=== PATIENT | female | born 1980 | race American Indian/Alaskan Native ===

== ENCOUNTER 2016-11-20 22:27 | Emergency (ER) | payer SELFPAY ==
--- NOTE | 2016-11-20 23:00 | Emergency Department Report ---
Chief Complaint: Psych Stated Complaint: ARTIS TAY Time Seen by Provider: 11/20/16 22:56 - HPI History of Present Illness: Chin here complaining of feeling tired and just wants to sleep. She denies suicidal or homicidal ideation. Blood pressure is 158/115. She says she feels stressed out. Patient does have a history of high blood pressure - ROS Review of Systems: All systems are negative unless stated in HPI above. - Exam Vital Signs: Vital Signs 11/20/16 22:41 Temperature 98.3 F Pulse Rate 105 H Respiratory 20 Rate Blood Pressure 158/115 O2 Sat by Pulse 97 Oximetry Physical Exam: General: This is a 35-year-old female well-nourished well-developed in no acute distress. Psych: Normal mood and behavior. Denies hallucination, suicidal ideation or homicide ideation. Cardiovascular: S1, S2. Tachycardic at 105. Regular rhythm MSE screening note: Focused history and physical exam performed. Due to findings the following was ordered:see mdm ED Medical Decision Making - Medical Decision Making Medical decision making: Patient seen by provider in triage area. Appropriate protocol activated and patient to main ED to be seen by physician. ED Disposition for MSE Condition: Stable
[2016-11-21 01:51] LABS: Basophils % (Auto) 0.5 % (0.0-1.8); Eosinophils % (Auto) 0.4 % (0.0-4.3); Hematocrit 37.6 % (30.3-42.9); Mean Corpuscular HGB Conc 32 % (30-34); Mean Corpuscular Hemoglobin 26 pg (28-32); Mean Corpuscular Volume 81 fl (79-97); Platelet Count 279 K/mm3 (140-440); Red Blood Count 4.63 M/mm3 (3.65-5.03); Red Cell Distribution Width 14.8 % (13.2-15.2); White Blood Count 8.1 K/mm3 (4.5-11.0)
[2016-11-21 01:54] VITALS: BP 128/85
[2016-11-21 02:05] LABS: Urine Drugs of Abuse Note Disclamer
[2016-11-21 02:16] LABS: Bacteria,Urine 1+ /HPF (Negative); Bilirubin,Urine NEG (Negative); Blood,Urine NEG (Negative); Ketones,Urine 20 mg/dL (Negative); Leukocyte Esterase,Urine NEG (Negative); Mucus,Urine 3+ /HPF; Nitrite,Urine NEG (Negative); Urobilinogen,Urine < 2.0 mg/dL (<2.0)
[2016-11-21 02:22] LABS: Blood Urea Nitrogen 7 mg/dL (7-17); Calcium 8.4 mg/dL (8.4-10.2); Carbon Dioxide 22 mmol/L (22-30); Glucose 100 mg/dL (65-100)
[2016-11-21 02:23] LABS: Chloride 102.1 mmol/L (98-107); Potassium 3.8 mmol/L (3.6-5.0); Sodium 139 mmol/L (137-145)
[2016-11-21 02:24] LABS: Anion Gap 19 mmol/L
--- NOTE | 2016-11-21 03:10 | Emergency Department Report ---
ED Psych HPI - General Chief Complaint: Psych Stated Complaint: ARTIS TAY Time Seen by Provider: 11/20/16 22:56 Source: patient Mode of arrival: Ambulatory Limitations: No Limitations - History of Present Illness Initial Comments: 35-year-old female with a past medical history of hypertension not currently on medications presents to the hospital complains of feeling tired and needing a place to sleep. Patient states she had to leave apartment in which she was living since her name was not on the lease therefore, patient is homeless as of yesterday. She states she hasn't slept in 24 hours due to insomnia and that she needs something to help her sleep and a comfortable place to sleep. He denies any physical complaints. She denies suicidal ideation, homicidal ideation, hallucinations, or psychiatric illness. She only states that she has "poor coping skills". She has taken Benadryl in the past to help her sleep and has not bought any [id number] prior to arrival. - Related Data Previous Rx's Medication Instructions Recorded Last Taken Type Diphenhydramine HCl [Sleep Aid] 50 mg PO QHS PRN #20 capsule 11/21/16 Unknown Rx Allergies Allergy/AdvReac Type Severity Reaction Status Date / Time No Known Allergies Allergy Verified 11/21/16 02:03 ED Review of Systems ROS: Stated complaint: ARTIS TAY Other details as noted in HPI Comment: All other systems reviewed and negative Other: Constitutional: No fevers chills Eyes: No eye pain visual changes ENT: No ear pain or throat pain Neck: Denies pain Respiratory: Denies cough wheezing shortness of breath Cardiovascular: Denies chest pain, palpitations, syncope GI: Denies abdominal pain, nausea, vomiting, diarrhea : Denies dysuria Musculoskeletal: Denies back pain Skin: Denies rash, lesions, erythema Neurologic: Denies headache, numbness, weakness Psychiatric: Denies suicidal ideation, hallucinations ED Past Medical Hx - Past Medical History Previous Medical History?: Yes Hx Hypertension: Yes - Surgical History Past Surgical History?: Yes Additional Surgical History: BREAST REDUCTION, X 2 - Social History Smoking Status: Current Every Day Smoker Substance Use Type: None - Medications Home Medications: Home Medications Medication Instructions Recorded Confirmed Last Taken Type Diphenhydramine HCl [Sleep Aid] 50 mg PO QHS PRN #20 capsule 11/21/16 Unknown Rx ED Physical Exam - General Limitations: No Limitations - Other Other exam information: General: No limitations, patient is alert in no acute distress Head exam: Atraumatic, normocephalic Eyes exam: Normal appearance, pupils equal reactive to light, extraocular movements intact ENT: Moist mucous membrane, normal oropharynx Neck exam: Normal inspection, full range of motion Respiratory exam: Clear to auscultation bilateral Cardiovascular: Normal rate and rhythm, normal heart sounds Abdomen: Soft, nondistended, and nontender, with normal bowel sounds, no rebound, or guarding Extremity: Full range of motion normal inspection no deformity Back: Normal Inspection, full range of motion, no tenderness Neurologic: Alert, oriented x3, cranial nerves intact, no motor or sensory deficit Psychiatric: normal affect, normal mood Skin: Warm, dry, intactxam ED Course Vital Signs 11/20/16 11/21/16 22:41 01:54 Temperature 98.3 F Pulse Rate 105 H 94 H Respiratory 20 Rate Blood Pressure 158/115 Blood Pressure 128/85 [Left] O2 Sat by Pulse 97 Oximetry - Reevaluation(s) Reevaluation #1: 11/21/16 03:13 Patient remained stable and cooperativity ED. Repeat blood pressure shows improvement spontaneously without treatment ED Medical Decision Making - Lab Data Result diagrams: 11/21/16 01:37 11/21/16 01:37 Lab Results 11/21/16 11/21/16 11/21/16 Range/Units 01:37 01:37 01:37 WBC 8.1 (4.5-11.0) K/mm3 RBC 4.63 (3.65-5.03) M/mm3 Hgb 12.0 (10.1-14.3) gm/dl Hct 37.6 (30.3-42.9) % MCV 81 (79-97) fl MCH 26 L (28-32) pg MCHC 32 (30-34) % RDW 14.8 (13.2-15.2) % Plt Count 279 (140-440) K/mm3 Lymph % (Auto) 32.1 (13.4-35.0) % [place] % (Auto) 11.2 H (0.0-7.3) % Eos % (Auto) 0.4 (0.0-4.3) % Baso % (Auto) 0.5 (0.0-1.8) % Lymph # 2.6 (1.2-5.4) K/mm3 [place] # 0.9 H (0.0-0.8) K/mm3 Eos # 0.0 (0.0-0.4) K/mm3 Baso # 0.0 (0.0-0.1) K/mm3 Seg Neutrophils % 55.8 (40.0-70.0) % Seg Neutrophils # 4.5 (1.8-7.7) K/mm3 Sodium 139 (137-145) mmol/L Potassium 3.8 (3.6-5.0) mmol/L Chloride 102.1 (98-107) mmol/L Carbon Dioxide 22 (22-30) mmol/L Anion Gap 19 mmol/L BUN 7 (7-17) mg/dL Creatinine 0.7 (0.7-1.2) mg/dL Estimated GFR > 60 ml/min BUN/Creatinine Ratio 10.00 % Glucose 100 (65-100) mg/dL Calcium 8.4 (8.4-10.2) mg/dL Urine Color (Yellow) Urine Turbidity (Clear) Urine pH (5.0-7.0) Ur Specific [place] (1.003-1.030) Urine Protein (Negative) mg/dL Urine Glucose (UA) (Negative) mg/dL Urine Ketones (Negative) mg/dL Urine Blood (Negative) Urine Nitrite (Negative) Urine Bilirubin (Negative) Urine Urobilinogen (<2.0) mg/dL Ur Leukocyte Esterase (Negative) Urine WBC (Auto) (0.0-6.0) /HPF Urine RBC (Auto) (0.0-6.0) /HPF U Epithel Cells (Auto) (0-13.0) /HPF Urine Bacteria (Auto) (Negative) /HPF Urine Mucus /HPF Urine HCG, Qual (Negative) Urine Opiates Screen Urine Methadone Screen Ur Barbiturates Screen Ur Phencyclidine Scrn Ur Amphetamines Screen U Benzodiazepines Scrn Urine Cocaine Screen U Marijuana (THC) Screen Drugs of Abuse Note Plasma/Serum Alcohol < 0.01 (0-0.07) gm% 11/21/16 11/21/16 Range/Units 01:49 01:49 WBC (4.5-11.0) K/mm3 RBC (3.65-5.03) M/mm3 Hgb (10.1-14.3) gm/dl Hct (30.3-42.9) % MCV (79-97) fl MCH (28-32) pg MCHC (30-34) % RDW (13.2-15.2) % Plt Count (140-440) K/mm3 Lymph % (Auto) (13.4-35.0) % [place] % (Auto) (0.0-7.3) % Eos % (Auto) (0.0-4.3) % Baso % (Auto) (0.0-1.8) % Lymph # (1.2-5.4) K/mm3 [place] # (0.0-0.8) K/mm3 Eos # (0.0-0.4) K/mm3 Baso # (0.0-0.1) K/mm3 Seg Neutrophils % (40.0-70.0) % Seg Neutrophils # (1.8-7.7) K/mm3 Sodium (137-145) mmol/L Potassium (3.6-5.0) mmol/L Chloride (98-107) mmol/L Carbon Dioxide (22-30) mmol/L Anion Gap mmol/L BUN (7-17) mg/dL Creatinine (0.7-1.2) mg/dL Estimated GFR ml/min BUN/Creatinine Ratio % Glucose (65-100) mg/dL Calcium (8.4-10.2) mg/dL Urine Color [place] (Yellow) Urine Turbidity Slightly-cloudy (Clear) Urine pH 5.0 (5.0-7.0) Ur Specific [place] 1.031 H (1.003-1.030) Urine Protein 30 mg/dl (Negative) mg/dL Urine Glucose (UA) Neg (Negative) mg/dL Urine Ketones 20 (Negative) mg/dL Urine Blood Neg (Negative) Urine Nitrite Neg (Negative) Urine Bilirubin Neg (Negative) Urine Urobilinogen < 2.0 (<2.0) mg/dL Ur Leukocyte Esterase Neg (Negative) Urine WBC (Auto) 4.0 (0.0-6.0) /HPF Urine RBC (Auto) 2.0 (0.0-6.0) /HPF U Epithel Cells (Auto) 16.0 H (0-13.0) /HPF Urine Bacteria (Auto) 1+ (Negative) /HPF Urine Mucus 3+ /HPF Urine HCG, Qual Negative (Negative) Urine Opiates Screen Presumptive negative Urine Methadone Screen Presumptive negative Ur Barbiturates Screen Presumptive negative Ur Phencyclidine Scrn Presumptive negative Ur Amphetamines Screen Presumptive negative U Benzodiazepines Scrn Presumptive negative Urine Cocaine Screen Presumptive negative U Marijuana (THC) Screen Presumptive positive Drugs of Abuse Note Disclamer Plasma/Serum Alcohol (0-0.07) gm% - Medical Decision Making Plan to discharge patient home with a prescription for sleep aid. Homeless correction resources will be provided - Differential Diagnosis insomnia, homelessness/secondary gain, psychiatric disorder, substance abus Critical Care Time: No Critical care attestation.: If time is entered above; I have spent that time in minutes in the direct care of this critically ill patient, excluding procedure time. ED Disposition Clinical Impression: Insomnia, Homeless Disposition: DISCHARGED TO HOME OR SELFCARE Is pt being admited?: No Does the pt Need Aspirin: No Condition: Stable Instructions: Insomnia (ED) Additional Instructions: Take medications as needed for sleep. Follow-up with the primary care and psychiatric clinic provided. Return if symptoms worsen. Prescriptions: Diphenhydramine HCl [Sleep Aid] 50 mg PO QHS PRN #20 capsule PRN Reason: Insomnia Referrals: [facility] [Provider Group] - 3-5 Days [facility] [Outside] - 3-5 Days Time of Disposition: 03:16
== END 2016-11-21 03:37 | disposition home or self-care (01) ==
LOC: ED 22:27 → EEVIPCON 22:27 → ED 11-21 03:37
DX: G47.00 Insomnia, unspecified (principal); Z59.0 Homelessness; I10 Essential (primary) hypertension; F17.200 Nicotine dependence, unspecified, uncomplicated
CPT/HCPCS: 36415; 80048; 80307; 81001; 81025; 85025; 99284; G0480; 80320

== ENCOUNTER 2016-11-21 05:09 | Emergency (ER) | payer SELFPAY ==
[2016-11-21 05:34] VITALS: BP 133/86
== END 2016-11-21 06:45 | disposition left against medical advice (07) ==
LOC: ED 05:09
DX: M54.9 Dorsalgia, unspecified (principal); Z53.21 Procedure and treatment not carried out due to patient leaving prior to being seen by health care provider

== ENCOUNTER 2016-11-21 11:59 | Emergency (ER) | payer SELFPAY ==
--- NOTE | 2016-11-21 12:19 | Emergency Department Report ---
Chief Complaint: Psych Stated Complaint: MH EVAL/VOLUNTARY 1013 Time Seen by Provider: 11/21/16 12:16 - HPI History of Present Illness: pt state she tired and not thinking clear ,pt poor historian and can not give reason has to be seen today .pt denies any pschy history .pt denies any suicidal or side of ideation . Patient denies any pain or discomfort. Denies any prior treatment - ROS Review of Systems: per HPI - Exam Vital Signs: Vital Signs 11/21/16 12:06 Temperature 98.9 F Pulse Rate 107 H Respiratory 20 Rate Blood Pressure 140/96 O2 Sat by Pulse 99 Oximetry Physical Exam: GENERAL: The patient is well-developed and well-nourished. Patient is in NAD. HENT: Normocephalic. Atraumatic. Patient has moist mucous membranes. Throat: No erythema, swelling or exudates. Ears:Tympanic membranes pearly garg ,intact , and free of exudate and erythema . EYES: Extraocular motions are intact, PERRL NECK: Supple. No meningitic signs are noted. There is no adenopathy noted. CHEST/LUNGS: Clear to auscultation bilaterally. No wheezing, rales or rhonchi noted. There is no respiratory distress noted. HEART/CARDIOVASCULAR: Regular rate and rhythm. Normal S1 S2. No murmurs, rubs , clicks, or gallops. ABDOMEN: Abdomen is soft, nontender.. Bowel sounds normoactive. There is no abdominal distention. Negative rebound tenderness. : Deferred. SKIN: There is no rash. There is no edema. There is no diaphoresis.Normal skin turgor NEURO: The patient is A&Ox3. The patient has no focal neurologic deficits. MUSCULOSKELETAL: There is no tenderness or deformity. There is no limitation range of motion. posture erect.Spine aligned,no deformities. PSYCH: Pt has appropriate mood and affect. MSE screening note: Focused history and physical exam performed. Due to findings the following was ordered: ED Disposition for MSE Condition: Stable
[2016-11-21 14:22] LABS: Urine Drugs of Abuse Note Disclamer
[2016-11-21 14:36] LABS: Bacteria,Urine 1+ /HPF (Negative); Bilirubin,Urine NEG (Negative); Blood,Urine NEG (Negative); Ketones,Urine 80 mg/dL (Negative); Leukocyte Esterase,Urine SM (Negative); Mucus,Urine 3+ /HPF; Nitrite,Urine NEG (Negative); RBC,Urine < 1.0 /HPF (0.0-6.0); Urobilinogen,Urine < 2.0 mg/dL (<2.0)
--- NOTE | 2016-11-21 17:24 | Emergency Department Report ---
HPI - General Chief Complaint: Psych Time Seen by Provider: 11/21/16 16:20 - HPI HPI: This is a 35-year-old Afro-[place] female who presents to the emergency department with the need for a mental health evaluation. Patient says that she is trying to "check myself in for family therapy" with the intent on "trying to find out whom I grandfather is." The patient's story keeps changing. She was witnessed coming into the emergency department with her father who has made some claims of psychosis or the patient says that she was dropped off by a friend. I asked if she knows who her mother and father are and she says that she does. Then when I asked if her parents were able to tell her who her grandparents are, she says "I've been asking and they will not tell me." Patient denies any psychiatric history but does admit to previous inpatient psych treatment in the course of telling other stories. She denies being on any medication on a regular basis. She denies illicit drug use. ED Past Medical Hx - Past Medical History Hx Hypertension: Yes - Surgical History Additional Surgical History: BREAST REDUCTION, X 2 - Social History Smoking Status: Current Every Day Smoker Substance Use Type: None - Medications Home Medications: Home Medications Medication Instructions Recorded Confirmed Last Taken Type Diphenhydramine HCl [Sleep Aid] 50 mg PO QHS PRN #20 capsule 11/21/16 Unknown Rx ED Review of Systems ROS: Stated complaint: MH EVAL/VOLUNTARY 1013 Other details as noted in HPI Comment: All other systems reviewed and negative Constitutional: denies: chills, fever Eyes: denies: eye pain, eye discharge, vision change ENT: denies: ear pain, throat pain Respiratory: denies: cough, shortness of breath, wheezing Cardiovascular: denies: chest pain, palpitations Gastrointestinal: denies: abdominal pain, nausea, diarrhea Genitourinary: denies: urgency, dysuria, discharge Musculoskeletal: denies: back pain, joint swelling, arthralgia Skin: denies: rash, lesions Neurological: denies: headache, weakness, paresthesias Psychiatric: denies: auditory hallucinations, visual hallucinations Physical Exam - Physical Exam Vital Signs: Vital Signs 11/21/16 12:06 Temperature 98.9 F Pulse Rate 107 H Respiratory 20 Rate Blood Pressure 140/96 O2 Sat by Pulse 99 Oximetry Physical Exam: GENERAL: The patient is well-developed well-nourished. HEENT: Normocephalic. Atraumatic. Extraocular motions are intact. Patient has moist mucous membranes. Pupils equal reactive to light bilaterally. NECK: Supple. Trachea is midline. CHEST/LUNGS: Clear to auscultation. There is no respiratory distress noted. HEART/CARDIOVASCULAR: Regular. There is no tachycardia. There is no gallop rub or murmur. ABDOMEN: Abdomen is soft, nontender. Patient has normal bowel sounds. There is no abdominal distention. SKIN: There is no rash. There is no edema. There is no diaphoresis. NEURO: The patient is awake, alert, and oriented. The patient is cooperative. The patient has no focal neurologic deficits. The patient has normal speech and gait. Cranial nerves II through XII grossly intact. MUSCULOSKELETAL: There is no tenderness or deformity. There is no limitation range of motion. There is no evidence of acute injury. PSYCH: Patient is emotionally labile ED Course Vital Signs 11/21/16 12:06 Temperature 98.9 F Pulse Rate 107 H Respiratory 20 Rate Blood Pressure 140/96 O2 Sat by Pulse 99 Oximetry ED Medical Decision Making - Lab Data Result diagrams: 11/21/16 18:35 11/21/16 18:35 - Medical Decision Making 35-year-old female presents to the emergency department with need for mental health evaluation. Patient's labs are mostly unremarkable. UDS positive for marijuana. First urinalysis shows 80 ketones but she had a repeat urinalysis and there was only 20 and the rest the patient's labs do not show any significant signs of dehydration. The patient denies any suicidal or homicidal ideations. She denies any hallucinations. However the patient does appear to have some acute psychosis. She is consistently switching between different names, she has some tangential thoughts. Her reasoning for being in the emergency department does not appear appropriate. Patient is emotionally labile. She was seen by the crisis therapist to got the same impression. I do not believe that the patient would be able to care for herself in an outpatient setting at this point. For this reason she has been made a 1013. She is medically cleared for psychiatric placement. - Differential Diagnosis schizophrenia, bipolar disorder, schizoaffective, depression, substance abu Critical Care Time: No Critical care attestation.: If time is entered above; I have spent that time in minutes in the direct care of this critically ill patient, excluding procedure time. ED Disposition Clinical Impression: Psychosis Qualifiers: Psychosis type: unspecified psychosis type Qualified Code(s): F29 - Unspecified psychosis not due to a substance or known physiological condition Disposition: DC/TX PSY HOSP/PSY UNIT Is pt being admited?: No Condition: Stable Time of Disposition: 21:10
[2016-11-21 18:57] LABS: Basophils % (Auto) 0.8 % (0.0-1.8); Eosinophils % (Auto) 0.3 % (0.0-4.3); Hematocrit 37.8 % (30.3-42.9); Hemoglobin 12.1 gm/dl (10.1-14.3); Mean Corpuscular HGB Conc 32 % (30-34); Mean Corpuscular Hemoglobin 26 pg (28-32); Mean Corpuscular Volume 82 fl (79-97); Platelet Count 291 K/mm3 (140-440); Red Blood Count 4.59 M/mm3 (3.65-5.03); Red Cell Distribution Width 14.9 % (13.2-15.2); White Blood Count 7.9 K/mm3 (4.5-11.0)
[2016-11-21] MEDS ORDERED: MACROBID PO ONE (19:21)
[2016-11-21 19:23] LABS: Alanine Aminotransferase 12 units/L (7-56); Albumin/Globulin Ratio 1.1 %; Alkaline Phosphatase 84 units/L (35-129); Anion Gap 18 mmol/L; Bilirubin,Total 0.2 mg/dL (0.1-1.2); Blood Urea Nitrogen 7 mg/dL (7-17); Carbon Dioxide 22 mmol/L (22-30); Glucose 104 mg/dL (65-100); Potassium 3.9 mmol/L (3.6-5.0); Sodium 136 mmol/L (137-145); Total Protein 7.6 g/dL (6.3-8.2)
[2016-11-21] MEDS ORDERED: NACL 0.9% 1000 ML 1,000 ML IV ONE (19:49)
[2016-11-21 20:12] LABS: Urine Drugs of Abuse Note Disclamer
[2016-11-21 20:19] LABS: Bilirubin,Urine NEG (Negative); Blood,Urine NEG (Negative); Ketones,Urine 20 mg/dL (Negative); Leukocyte Esterase,Urine SM (Negative); Mucus,Urine 1+ /HPF; Nitrite,Urine NEG (Negative); Protein,Urine <15 mg/dL mg/dL (Negative); Urobilinogen,Urine < 2.0 mg/dL (<2.0)
[2016-11-21] MEDS ORDERED: MACROBID ONE (22:01)
[2016-11-21] MEDS ORDERED: NACL 0.9% 1000 ML 1,000 ML ONE (22:02)
--- NOTE | 2016-11-22 19:47 | Emergency Department Report ---
Blank Doc - Documentation Documentation: Vital Signs - 24 hr 11/22/16 07:45 Temperature 98.1 F Pulse Rate 82 Respiratory 16 Rate Blood Pressure 121/79 [Left] O2 Sat by Pulse 96 Oximetry Vital signs reviewed. No events reported. Awaiting placement
[2016-11-22] MEDS ORDERED: TORADOL IM ONE (21:30)
[2016-11-22] MEDS: MACROBID PO SCH (22:17)
[2016-11-23] MEDS: MACROBID PO SCH ×3 (10:11→23:25)
--- NOTE | 2016-11-23 13:57 | Event Note ---
Date: 11/23/16 Vital signs reviewed. Awaiting psychiatric placement. Vital Signs 11/21/16 11/21/16 11/21/16 12:06 18:52 19:30 Temperature 98.9 F 98.6 F Pulse Rate 107 H 92 H Respiratory 20 16 18 Rate Blood Pressure 140/96 Blood Pressure 126/85 [Left] O2 Sat by Pulse 99 98 98 Oximetry 11/22/16 11/22/16 11/23/16 07:45 20:09 09:41 Temperature 98.1 F 98.5 F 98.9 F Pulse Rate 82 90 88 Respiratory 16 16 18 Rate Blood Pressure Blood Pressure 121/79 118/75 134/94 [Left] O2 Sat by Pulse 96 100 99 Oximetry 11/23/16 12:46 Temperature Pulse Rate Respiratory 18 Rate Blood Pressure Blood Pressure [Left] O2 Sat by Pulse 99 Oximetry
[2016-11-23 20:56] VITALS: BP 99/66
== END 2016-11-24 11:37 ==
LOC: EEVIPCON 11:59 → ED 11:59
DX: F29 Unspecified psychosis not due to a substance or known physiological condition (principal); I10 Essential (primary) hypertension; F17.200 Nicotine dependence, unspecified, uncomplicated
CPT/HCPCS: 36415; 80053; 80307; 81001; 84703; 85025; 96360; 96372; 99285; G0480; J1885; J7030; 80320